=== PATIENT | female | born 1990 | race Caucasian/White ===

== ENCOUNTER 2017-10-09 08:23 | Day surgery (SDC) | payer OTHER ==
[2017-10-09] MEDS ORDERED: Sodium Bicarbonate 2.4 MEQ/5 ML ONE (08:30)
[2017-10-09] MEDS ORDERED: Lidocaine 1% PF 5 ML VIAL ONE (08:30)
--- NOTE | 2017-10-09 11:45 | ULT ---
THYROID FNA ULTRASOUND GUIDANCE: CLINICAL HISTORY: Left thyroid lobe nodule. PROCEDURE: The patient was informed and consented to the procedure and then escorted to the procedural suite and placed in the supine position. The left neck was prepped and draped in standard sterile fashion and the nodule of interest within the left thyroid lobe was localized. Topical anesthesia was achieved. Subsequently, 4 separate FNA procedures using a 25-gauge needle were performed under real-time ultr asound with imaging stored for documentation. These samples were provided to the physician chief of pathology who deemed the specimens adequate for interpretation. All devices were removed from the patient. T he patient tolerated the procedure well. No procedural complications were present. IMPRESSION: Technically successful ultrasound-guided fine needle aspirate of left thyroid nodule. Pathology resu lts are pending. POS: [facility]
[2017-10-09 12:20] VITALS: BP 126/74; TEMP 98.6; BMI 28.8
== END 2017-10-09 09:15 | disposition home or self-care (01) ==
LOC: ULT 08:23
PROVIDERS: ATTEND Internal Medicine
PROC: 0GJK3ZZ Inspection of Thyroid Gland, Percutaneous Approach (ICD-10-PCS; principal; 2017-10-09)
DX: E04.1 Nontoxic single thyroid nodule (principal); F17.200 Nicotine dependence, unspecified, uncomplicated; Z88.0 Allergy status to penicillin; Z88.2 Allergy status to sulfonamides; Z88.1 Allergy status to other antibiotic agents; Z88.8 Allergy status to other drugs, medicaments and biological substances; Z91.013 Allergy to seafood; Z91.041 Radiographic dye allergy status
CPT/HCPCS: 10022; 76942; 88173; J2001

== ENCOUNTER 2020-02-02 12:31 | Outpatient (CLI) | payer BC ==
--- NOTE | 2020-02-02 15:33 | MRI ---
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 TECHNIQUE: Multiplanar and multisequence MR images were obtained of the abdomen with and without contrast utiliz ing 15 mL of Multihance. No comparisons are available. FINDINGS: Both kidney has a normal morphological appearance. No focal renal lesion is evident. No hydronephrosi s is demonstrated. Adrenal glands, pancreas, liver, and gallbladder are normal appearing. There is a 9.6 mm cyst involvi ng the inferior pole of the spleen. No lymphadenopathy or free fluid is evident. IMPRESSION: 1. No renal anomaly demonstrated. 2. Small inferior pole splenic cyst. POS: [facility]
--- NOTE | 2020-02-02 15:45 | MRI ---
MRI OF PELVIS WITH AND WITHOUT IV CONTRAST: Date: 02/02/2020 INDICATION: History of congenital malformation of uterus and cervix. TECHNIQUE: Multiplanar, multisequence MR images were obtained of the pelvis with and without contrast utilizing 15 mL of MultiHance. COMPARISON: None. 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 No appreciable vaginal septum is present. The visualized yessenia dder is partially decompressed. The left and right adnexa are normal appearing. No free fluid is evid ent. No enlarged lymph nodes are present. Bone marrow signal intensity appears within normal limits. There is a circular low density ring within the region of the vaginal vault suspicious for a pessary. IMPRESSION: 1. Bicornuate bicollis uterus. 2. Circular low signal intensity ring within the vagina may reflect a pessary. POS: [facility]
== END 2020-02-02 12:32 | disposition home or self-care (01) ==
LOC: BICMRI 12:31
PROVIDERS: ATTEND Obstetrics & Gynecology
DX: Q51.9 Congenital malformation of uterus and cervix, unspecified (principal); Q51.3 Bicornate uterus; D73.4 Cyst of spleen
CPT/HCPCS: 72197; 74183; 82565